=== PATIENT | female | born 1945 | race Caucasian/White ===

== ENCOUNTER → 2023-12-24 08:14 | Outpatient (REF) | payer OTHER, SELFPAY | LOC: REG 08:14 | PROVIDERS: ATTENDING PHYSICIAN Family Medicine | DX: R10.32 Left lower quadrant pain (principal) | CPT/HCPCS: 73502 ==

== ENCOUNTER → 2024-07-06 14:52 | Outpatient (REF) | payer OTHER, SELFPAY | LOC: RAD 14:52 | PROVIDERS: ATTENDING PHYSICIAN Family Medicine | DX: M79.89 Other specified soft tissue disorders (principal) | CPT/HCPCS: 93971 ==

== ENCOUNTER → 2024-10-22 11:22 | Outpatient (REF) | payer OTHER, SELFPAY | LOC: HWRAD 11:22 | PROVIDERS: ATTENDING PHYSICIAN Family Medicine | DX: R42 Dizziness and giddiness (principal); R26.89 Other abnormalities of gait and mobility; E78.00 Pure hypercholesterolemia, unspecified; I70.0 Atherosclerosis of aorta | CPT/HCPCS: 70450 ==

== ENCOUNTER 2025-01-03 10:16 | Emergency (ER) | payer OTHER, SELFPAY ==
[2025-01-03 10:20] VITALS: BP 105/78
--- NOTE | 2025-01-03 12:00 | ED.GENMED ---
History of Present Illness
General
Chief Complaint: Head Injury
Source: patient
Exam Limitations: none
Time Seen by Provider: 01/03/25 11:22
Nursing documentation reviewed up to this point in time: agreed with
History of Present Illness
History of Present Illness:
79-year-old female presents to the ER for evaluation of head injury. Patient was on her front porch and fell off approximately 2 feet landing on the ground. She did hit her head. She had no loss of consciousness. She was able to get herself up.
She does complain of a headache. She her neck feels mildly sore. She is not on blood thinners. No extremity injury. This occurred around 9:15 AM
Past History
Past History
ED Past Medical History: Hypercholesterolemia
ED Past Surgical History: Orthopedic and Other
Social History
Tobacco: Former smoker
Alcohol: None
Review of Systems
Review of Systems
Allergies reviewed?: Yes
All Other Systems: ROS reviewed and negative except as documented in HPI and ROS
Constitutional: Reports no symptoms
Musculoskeletal: Reports other (neck sore )
Skin: Reports no symptoms
Neurological: Reports headache
Hematologic/Lymphatic: Reports no symptoms
Psychiatric: Reports no symptoms
Phy Exam
General Physical Exam
General Presentation: no apparent distress
General age: appears stated age
General Skin: warm and dry
General Habitus: elderly
General Mental: alert
General Hydration: appears well hydrated
Eye Exam
Eye Exam: PERRL and EOMI
Eye Exam General: PERRL: bilateral and EOM intact: bilateral
Pupil Exam: Bilateral: round and reactive
Neurological Exam
Neurological Exam: alert and oriented x3
Musculoskeletal Exam
Musculoskeletal Exam: full ROM
Skin Exam
Skin Exam: normal color and warm/dry
Psychiatric Exam
Psychiatric Exam: normal mood/affect
Course
Orders/Labs/Results
Orders:
Orders
01/03/25 11:54
CT Head W/o Iv Contrast Urgent
Comment:
Reason For Exam: trauma
01/03/25 11:59
CT Cervical Spine W/o Iv Contr Urgent
Comment:
Reason For Exam: trauma
Vital Signs
Initial and Last Documented VS:
Initial Vital Signs
Temp Pulse Resp BP Pulse Ox
98.6 F 89 16 105/78 98
01/03/25 10:20 01/03/25 10:20 01/03/25 10:20 01/03/25 10:20 01/03/25 10:20
Last Documented Vital Signs
Temp Pulse Resp BP Pulse Ox
98.6 F 89 16 105/78 98
01/03/25 10:20 01/03/25 10:20 01/03/25 10:20 01/03/25 10:20 01/03/25 12:02
MDM/Problems Addressed
Differential Diagnosis Includes:
Not limited to head injury, intracranial
MDM/Problems Addressed:
Patient is a 79-year-old female describes mechanical fall no blood thinners no loss of conscious mild headache. She has normal neurologic exams no obvious tender on exam. No bony C-spine tenderness. Ambulatory with a steady gait. CT head and
cervical spine are negative. pt stable for d/c home.
*Radiology
Radiology exam reviewed: radiology read reviewed
*Pulse Oximetry
SaO2: 98
Oxygen Mode of Delivery: Room air
Patient hypoxic: no
*Critical Care Note
Total Time (30-74mins, 75-104mins- exclusive of procedures): Not Applicable
ED Attending Note
-
Portions of this chart may have been created with voice recognition software.� Occasional wrong word or��sound alike� substitutions may have occurred due to the inherent limitations of voice recognition software.
Discharge Plan
Departure
Patient Disposition: Home (Routine Discharge)
Date of Disposition: 01/03/25
Time of Disposition: 12:48
Patient with high blood pressure during this ER visit?: No
Condition: Fair
Covid-19: Not Applicable
Discharge Problem:
Head injury
Instructions: Head Injury in Adults (DC)
Referrals:
Orville Lewis MD [Family Provider, [facility]]
Activity Restrictions/Additional Instructions:
As discussed your CAT scan of your head and cervical spine were negative. Please follow-up with your family doctor in the next 2 days for reevaluation .
return if any worsening of symptoms
Interventions
Interventions:
*Risk Screen - Suicide Last Done: 01/03/25 10:21
*Neglect/Abuse Screening Last Done: 01/03/25 10:21
Discharge Date and Time
Print Language: [place]
[2025-01-03 13:06] VITALS: BP 107/68
== END 2025-01-03 13:06 | disposition home or self-care (01) ==
LOC: EMR 10:16
PROVIDERS: EMERGENCY PHYSICIAN Emergency Medicine; FAMILY PHYSICIAN Family Medicine
DX: S09.90XA Unspecified injury of head, initial encounter (principal); W19.XXXA Unspecified fall, initial encounter; E78.00 Pure hypercholesterolemia, unspecified; Z87.891 Personal history of nicotine dependence
CPT/HCPCS: 99284; 70450; 72125